=== PATIENT | male | born 1980 ===

== ENCOUNTER 2024-07-23 11:52 | Emergency (ER) | payer OTHER, BC, SELFPAY ==
[2024-07-23 12:00] VITALS: BP 124/83
--- NOTE | 2024-07-23 13:18 | ED.GENMED ---
History of Present Illness
General
Chief Complaint: Musculo-Skeletal Complaint
Time Seen by Provider: 07/23/24 13:01
History of Present Illness
History of Present Illness:
44-year-old male presents to the emergency department for evaluation of right ankle injury. He inverted the ankle while walking, heard a crack. He then had a syncopal event after the injury. He is able to bear weight. Currently feels well
Review of Systems
Review of Systems
Allergies reviewed?: Yes
All Other Systems: ROS reviewed and negative except as documented in HPI and ROS
Phy Exam
Physical Exam
Physical Exam:
GEN: Well appearing, NAD, WDWN
HEENT: Oral mucosa moist, no scleral icterus
Cardiac: Regular rate
Lung: No respiratory distress, no tachypnea
MSK: Moderate swelling to the right distal fibula with reproducible tenderness. No tenderness to the medial malleolus or base of the fifth metatarsal. Walks with a limp but able to tolerate weightbearing
Skin: Good color, no pallor or jaundice, no rashes
Neuro: AO x3, moves all extremities freely
Psych: Calm, cooperative
Course
Orders/Labs/Results
Orders:
Orders
07/23/24 12:02
Ankle, Right 3 view CR [CR Ankle - Right Min 3 Views *] Urgent
Comment:
Reason For Exam: injury
Vital Signs
Initial and Last Documented VS:
Initial Vital Signs
Temp Pulse Resp BP Pulse Ox
97.7 F 70 16 124/83 100
07/23/24 12:00 07/23/24 12:00 07/23/24 12:00 07/23/24 12:00 07/23/24 12:00
Last Documented Vital Signs
Temp Pulse Resp BP Pulse Ox
97.7 F 77 20 115/78 100
07/23/24 12:00 07/23/24 13:48 07/23/24 13:48 07/23/24 13:48 07/23/24 13:48
MDM/Problems Addressed
MDM/Problems Addressed:
Imaging unremarkable for fracture, likely ATFL sprain, discussed supportive care
*Critical Care Note
Total Time (30-74mins, 75-104mins- exclusive of procedures): Not Applicable
ED Attending Note
-
Portions of this chart may have been created with voice recognition software.� Occasional wrong word or��sound alike� substitutions may have occurred due to the inherent limitations of voice recognition software.
Discharge Plan
Departure
Patient Disposition: Home (Routine Discharge)
Date of Disposition: 07/23/24
Time of Disposition: 13:19
Patient with high blood pressure during this ER visit?: No
Discharge Problem:
Sprain of ankle, right
Instructions: Ankle sprain - ED discharge instructions
Interventions
Interventions:
*Risk Screen - Suicide Last Done: 07/23/24 12:03
*General Assessment Last Done: 07/23/24 13:48
*Neglect/Abuse Screening Last Done: 07/23/24 12:03
*Nursing Disposition Last Done: 07/23/24 13:50
ED-Musculoskeletal Assessment Last Done: 07/23/24 13:48
Discharge Date and Time
Discharge Date/Time: 07/23/24 13:50
Print Language: CHINESE
[2024-07-23 13:48] VITALS: BP 115/78
== END 2024-07-23 13:50 | disposition home or self-care (01) ==
LOC: EMR 11:52
PROVIDERS: EMERGENCY PHYSICIAN Emergency Medicine; FAMILY PHYSICIAN Physician Assistant Medical
DX: S93.401A Sprain of unspecified ligament of right ankle, initial encounter (principal); X50.1XXA Overexertion from prolonged static or awkward postures, initial encounter
CPT/HCPCS: 99283; 73610